=== PATIENT | male | born 1985 | race Caucasian/White ===

== ENCOUNTER → 2019-05-21 | Outpatient (REF) | payer OTHER | LOC: M SMT 13:25 | PROVIDERS: ATTEND Urology | DX: Z30.2 Encounter for sterilization (principal) ==

== ENCOUNTER → 2019-07-15 | Outpatient (REF) | payer OTHER ==
[2019-07-15 10:09] LABS: SEMEN APPEARANCE OPAQUE (OPAQUE); SEMEN VISCOSITY LIQUID (LIQUID); SEMEN VOLUME 1.8 ml (2.0-5.0); SEMEN pH 8.5 (7.0-8.0); WBC CONCENTRATION <=1 M/ml (<=1 M/ml)
== END ==
LOC: M SMT 10:03
PROVIDERS: ATTEND Urology
DX: Z98.52 Vasectomy status (principal)

== ENCOUNTER 2021-01-20 14:35 | Emergency (ER) | payer OTHER, BC ==
[~2021-01-20] VITALS: Ht 177.8 cm; Wt 103.6 kg
[2021-01-20 14:36] VITALS: BP 135/71
--- OUTSIDE RECORDS SUMMARY | 2021-01-20 14:43 | CCD ---
Author Author [facility] Organization [facility] Address Unknown Phone Unavailable Care Team Providers Care Academic Adviser Name Role Phone Mariposa Mccarthy MD Unavailable Unavailable Mariposa Mccarthy MD Unavailable Unavailable Mariposa Mccarthy MD Unavailable Unavailable Mariposa Mccarthy MD Unavailable Unavailable Mariposa Mccarthy MD Unavailable Unavailable Mariposa Mccarthy MD Unavailable Unavailable Mariposa Mccarthy MD Unavailable Unavailable Mariposa Mccarthy MD Unavailable Unavailable Mariposa Mccarthy MD Unavailable Unavailable Mariposa Mccarthy MD Unavailable Unavailable Mariposa Mccarthy MD Unavailable Unavailable Mariposa Mccarthy MD Unavailable Unavailable Mariposa Mccarthy MD Unavailable Unavailable Mariposa Mccarthy MD Unavailable Unavailable Mariposa Mccarthy MD Unavailable Unavailable Mariposa Mccarthy MD Unavailable Unavailable Mariposa Mccarthy MD Unavailable Unavailable Mariposa Mccarthy MD Unavailable Unavailable Mariposa Mccarthy MD Unavailable Unavailable Mariposa Mccarthy MD Unavailable Unavailable Mariposa Mccarthy MD Unavailable Unavailable Mariposa Mccarthy MD Unavailable Unavailable Mariposa Mccarthy MD Unavailable Unavailable Mariposa Mccarthy MD Unavailable Unavailable Mariposa Mccarthy MD Unavailable Unavailable Mariposa Mccarthy MD Unavailable Unavailable Mariposa Mccarthy MD Unavailable Unavailable Mariposa Mccarthy MD Unavailable Unavailable Mariposa Mccarthy MD Unavailable Unavailable Mariopsa Mccarthy MD Unavailable Unavailable Mariposa Mccarthy MD Unavailable Unavailable Mariposa Mccarthy MD Unavailable Unavailable Mariposa Mccarthy MD Unavailable Unavailable ShariMariposa MD Unavailable Unavailable ShariMariposa MD Unavailable Unavailable HamptonMariposa MD Unavailable Unavailable HamptonMariposa MD Unavailable Unavailable Shari, Mariposa Gottlieb MD Unavailable Unavailable ShariMariposa MD Unavailable Unavailable HamptonMariposa MD Unavailable Unavailable ShariMariposa MD Unavailable Unavailable ShariMariposa MD Unavailable Unavailable HamptonMariposa MD Unavailable Unavailable ShariMariposa MD Unavailable Unavailable ShariMariposa MD Unavailable Unavailable HamptonMariposa MD Unavailable Unavailable ShariMariposa MD Unavailable Unavailable HamptonMariposa MD Unavailable Unavailable ShariMariposa MD Unavailable Unavailable HamptonMariposa MD Unavailable Unavailable ShariMariposa MD Unavailable Unavailable ShariMariposa MD Unavailable Unavailable ShariMariposa MD Unavailable Unavailable ShariMariposa MD Unavailable Unavailable HamptonMariposa MD Unavailable Unavailable HamptonMariposa MD Unavailable Unavailable HamptonMariposa MD Unavailable Unavailable HamptonMariposa MD Unavailable Unavailable HamptonMariposa MD Unavailable Unavailable ShariMariposa MD Unavailable Unavailable ShariMariposa MD Unavailable Unavailable HamptonMariposa MD Unavailable Unavailable ShariMariposa MD Unavailable Unavailable HamptonMariposa MD Unavailable Unavailable ShariMariposa MD Unavailable Unavailable ShariMariposa MD Unavailable Unavailable HamptonMariposa MD Unavailable Unavailable ShariMariposa paiz MD Unavailable Unavailable HamptonMariposa MD Unavailable Unavailable HamptonMariposa MD Unavailable Unavailable ShariMariposa MD Unavailable Unavailable HamptonMariposa MD Unavailable Unavailable ShariMariposa MD Unavailable Unavailable ShariMariposa paiz MD Unavailable Unavailable ShariMariposa paiz MD Unavailable Unavailable HamptonMariposa paiz MD Unavailable Unavailable HamptonMariposa MD Unavailable Unavailable HamptonMariposa MD Unavailable Unavailable HamptonMariposa MD Unavailable Unavailable ShariMariposa MD Unavailable Unavailable ShariMariposa MD Unavailable Unavailable ShariMariposa MD Unavailable Unavailable ShariMariposa MD Unavailable Unavailable HamptonMariposa MD Unavailable Unavailable HamptonMariposa MD Unavailable Unavailable ShariMariposa MD Unavailable Unavailable ShariMariposa MD Unavailable Unavailable Re-disclosure Warning The records that you are about to access may contain information from federally-assisted alcohol or drug abuse programs. If such information is present, then the following federally mandated warning applies: This information has been disclosed to you from records protected by federal confidentiality rules (42 CFR part 2). The federal rules prohibit you from making any further disclosure of this information unless further disclosure is expressly permitted by the written consent of the person to whom it pertains or as otherwise permitted by 42 CFR part 2. A general authorization for the release of medical or other information is NOT sufficient for this purpose. The Federal rules restrict any use of the information to criminally investigate or prosecute any alcohol or drug abuse patient.The records that you are about to access may contain highly sensitive health information, the redisclosure of which is protected by Article 27-F of the [facility] Public Health law. If you continue you may have access to information: Regarding HIV / AIDS; Provided by facilities licensed or operated by the [facility] Office of Mental Health; or Provided by the [facility] Office for People With Developmental Disabilities. If such information is present, then the following [facility] mandated warning applies: This information has been disclosed to you from confidential records which are protected by state law. State law prohibits you from making any further disclosure of this information without the specific written consent of the person to whom it pertains, or as otherwise permitted by law. Any unauthorized further disclosure in violation of state law may result in a fine or mcc sentence or both. A general authorization for the release of medical or other information is NOT sufficient authorization for further disc losure. Family History Family Member Name Family Member Gender Family Member Status Date o f Status Description Data Source(s) Unknown Unknown Problem [facility] ([facility]) Unknown Unknown Problem [facility] ([facility]) son Unknown Unknown Encounters Encounter Providers Location Date Indications Data Source(s ) Outpatient Attender: Bull Campbell 03/29/2020 09:20:00 AM EST [facility] ([facility] ) Immunizations Vaccine Date Status Description Data Source(s) COVID-19 VACCINE Pfizer 03/24/2020 12:00:00 AM EST completed NYSIIS Vaccine Series Complete: YESThis Data wa s Submitted to [facility] Via [employer]. COVID-19 VACCINE Pfizer 03/06/2020 12:00:00 AM EST completed [facility]SIIS Vaccine Series Complete: NOThis Data was Submitted to [facility] Via [employer]. Medications No Information Insurance Providers Payer name Policy type / Coverage type Policy ID Covered alliance party ID Covered alliance party's relationship to atkinson Policy Atkinson Plan Information [employer] [employer] (HMO) [id number] Self [employer] [id number] [facility] [employer] [id number] Self [id number] [facility] Commercial [id number] Self [id number] [facility] Commercial [id number] Self [id number] Problems, Conditions, and Diagnoses No Information Surgeries/Procedures No Information Results ID Date Data Source [id number] 03/29/2020 10:12:00 AM EST [facility] ([facility]) Name Value Range Interpretation Code Description Data Alina rce(s) Supporting Document(s) Triglyceride [Mass/volume] in Serum or Plasma 60 mg/dL 30-150 [facility] ([facility]) Cholesterol in HDL [Mass/volume] in Serum or Plasma 64 mg/dL 35-60 [facility] ([facility]) Cholesterol [Mass/volume] in Serum or Plasma 230 mg/dL 131-200 [facility] ([facility]) Cholesterol in LDL [Mass/volume] in Serum or Plasma by calcu lation 154 CALC 50-159 [facility] ([facility]) ID Date Data Source [id number] 03/29/2020 10:12:00 AM EST [facility] ([facility]) Name Value Range Interpretation Code Description Data Alina rce(s) Supporting Document(s) Urea nitrogen [Mass/volume] in Serum or Plasma 16 mg/dL 7-18 [facility] ([facility]) Glucose [Mass/volume] in Serum or Plasma 104 mg/dL 74-99 [facility] ([facility]) 100-125 mg/dL PRE-DIABETES/FASTING >126 mg/dL DIABETES/FASTING Sodium [Moles/volume] in Serum or Plasma 144 meq/L 136-145 [facility] ([facility]) Potassium [Moles/volume] in Serum or Plasma 4.6 meq/L 3.5-5.1 [facility] ([facility]) Creatinine 0.8 mg/dL 0.6-1.3 [facility] ([facility]) Chloride [Moles/volume] in Serum or Plasma 104 meq/L 98-107 [facility] ([facility]) Calcium [Mass/volume] in Serum or Plasma 9.3 mg/dL 8.5-10.1 [facility] ([facility]) Carbon dioxide, total [Moles/volume] in Serum or Plasma 29 meq/L 21 -32 [facility] ([facility]) Alkaline phosphatase isoenzyme [Units/volume] in Serum or Pl asma 44 mg/dL 46-116 [facility] ([facility]) Aspartate aminotransferase [Enzymatic activity/volume] in Serum or Plasma 15 U/L 15-37 [facility] ([facility] ) Total Bilirubin 0.7 mg/dL 0.2-1.0 [facility] ([facility]) Albumin [Mass/volume] in Serum or Plasma 4.5 g/dL 3.4-5.0 [facility] ([facility]) Alanine aminotransferase [Enzymatic activity/volume] in Seru m or Plasma 37 U/L 12-78 [facility] ([facility]) Proteinase 3 Ab [Units/volume] in Serum 7.5 g/dL 6.4-8.2 [facility] ([facility]) Glomerular filtration rate/1.73 sq M pre dicted among non-blacks [Volume Rate/Area] in Serum or Plasma by Creatinine-based formula (MDRD) Laboratory test result [facility] ([facility] ) A/G Ratio 1.50 CALC 1.00-1.90 [facility] Glomerular filtration rate/1.73 sq M pre dicted among blacks [Volume Rate/Area] in Serum or Plasma by Creatinine-based formula (MDRD) Laboratory test result [facility] ([facility]) <content>CHRONIC KIDNEY DISEASE STAGING PER NKF</content>
<content></content>
<content>STAGE I & II GFR >= 60 NORMAL TO MILDLY DECREASED</content>
<content>STAGE III GFR 30-59 MODERATELY DECREASED</content>
<content>STAGE IV GFR 15-29 SEVERELY DECREASED</content>
<content>STAGE V GFR <15 VERY LITTLE GFR LEFT</content>
<content>ESRD GFR <15 ON GENERAL MILLING SUPERINTENDENT</content>
<content></content> ID Date Data Source [id number] 03/29/2020 10:12:00 AM EST [facility] ([facility]) Name Value Range Interpretation Code Description Data Alina rce(s) Supporting Document(s) Leukocytes [#/volume] in Blood by Automated count 5.3 x10*3/UL 4.1-10 .9 [facility] ([facility]) Erythrocytes [#/volume] in Blood by Automated count 5.12 x10*6/UL 4.2 0-6.30 [facility] Hemoglobin [Mass/volume] in Blood 15.0 g/dL 12.0-18.0 [facility] Hematocrit [Volume Fraction] of Blood by Automated count 42.2 % 3 7.0-51.0 [facility] MCV 82.4 fL 80.0-97.0 [facility] ([facility]) MCHC 35.6 g/dL 31.0-38.0 [facility] ([facility]) MCH 29.3 pg 26.0-32.0 [facility] ([facility]) Erythrocyte distribution width [Ratio] by Automated count 12.4 % 11.6-13.7 [facility] ([facility]) Lymph % 26.3 % 10.0-58.5 [facility] ([facility]) Platelets [#/volume] in Blood by Automated count 261 x10*3/UL 140-440 [facility] ([facility]) MPV 7.8 FL 7.8-11.0 [facility] ([facility]) Mid % 5.8 % 1.7-9.3 [facility]) Lymph # 1.4 x10*3/UL 0.6-4.1 [facility] ([facility]) Neut % 67.9 % 37.0-92.0 [facility] Mid # 0.3 x10*3/UL 0.1-0.6 [facility] ([facility]) Neut # 3.6 x10*3/UL 2.0-7.8 [facility] ([facility]) Procedure Social History No Information Vital Signs ID Date Data Source UNK Name Value Range Interpretation Code Description Data Source(s) Systolic blood pressure 118 mm[Hg] 118 mm[Hg] M [facility] ([facility]) Diastolic blood pressure 74 mm[Hg] 74 mm[Hg] [facility] ([facility]) Heart rate 70 /min 70 /[facility] Body height 70 [in_i] 70 [in_i] [facility] 5'10" Body mass index (BMI) [Ratio] 29.0 kg/m2 29.0 k g/m2 [facility] ([facility]) Body weight 202.00 [lb_av] 202.00 [lb_av] [facility] T ([facility])
[2021-01-20] MEDS ORDERED: BOOSTRIX/ADACEL VACCINE (DIPHTH/PERTUSS/ACELL/TETANUS) 0.5ML SYR IM ONE (14:55)
[2021-01-20] MEDS ORDERED: AUGMENTIN 875 MG TAB PO ONE (14:55)
[2021-01-20] MEDS ORDERED: AUGM875T28 PO (15:12)
--- OUTSIDE RECORDS SUMMARY | 2021-01-20 15:14 | CCD ---
Author Author [facility] Organization [facility] Address Unknown Phone Unavailable Care Team Providers Care Load Manager Name Role Phone Mariposa Mccarthy MD Unavailable [...] Unavailable Unavailable Mariposa Mccarthy MD Unavailable Unavailable DinubaMariposa MD Unavailable Unavailable DinubaMariposa MD Unavailable Unavailable DinubaMariposa MD Unavailable Unavailable ShariMariposa MD Unavailable Unavailable ShariMariposa MD Unavailable Unavailable ShariMariposa MD Unavailable Unavailable ShariMariposa MD Unavailable Unavailable DinubaMariposa MD Unavailable Unavailable DinubaMariposa MD Unavailable Unavailable DinubaMariposa MD Unavailable Unavailable DinubaMariposa MD Unavailable Unavailable ShariMariposa MD Unavailable Unavailable DinubaMariposa MD Unavailable Unavailable ShariMariposa MD Unavailable Unavailable DinubaMariposa MD Unavailable Unavailable DinubaMariposa MD Unavailable Unavailable ShariMariposa MD Unavailable Unavailable ShariMariposa MD Unavailable Unavailable DinubaMariposa MD Unavailable Unavailable DinubaMariposa MD Unavailable Unavailable DinubaMariposa MD Unavailable Unavailable ShariMariposa MD Unavailable Unavailable DinubaMariposa MD Unavailable Unavailable DinubaMariposa MD Unavailable Unavailable ShariMariposa MD Unavailable Unavailable DinubaMariposa MD Unavailable Unavailable DinubaMariposa MD Unavailable Unavailable ShariMariposa MD Unavailable Unavailable ShariMariposa MD Unavailable Unavailable DinubaMariposa MD Unavailable Unavailable ShariMariposa MD Unavailable Unavailable ShariMariposa MD Unavailable Unavailable ShariMariposa MD Unavailable Unavailable DinubaMariposa MD Unavailable Unavailable DinubaMariposa MD Unavailable Unavailable ShariMariposa paiz MD Unavailable Unavailable DinubaMariposa MD Unavailable Unavailable ShariMariposa MD Unavailable Unavailable ShariMariposa MD Unavailable Unavailable DinubaMariposa MD Unavailable Unavailable ShariMariposa MD Unavailable Unavailable DinubaMariposa MD Unavailable Unavailable ShariMariposa MD Unavailable Unavailable ShariMariposa MD Unavailable Unavailable DinubaMariposa MD Unavailable Unavailable DinubaMariposa MD Unavailable Unavailable ShariMariposa MD Unavailable Unavailable ShariMariposa MD Unavailable Unavailable DinubaMariposa MD Unavailable Unavailable ShariMariposa MD Unavailable Unavailable ShariMariposa MD Unavailable Unavailable ShariMariposa MD Unavailable Unavailable ShariMariposa MD Unavailable Unavailable DinubaMariposa MD Unavailable Unavailable DinubaMariposa MD Unavailable Unavailable DinubaMariposa MD Unavailable Unavailable Mariposa Mccarthy MD Unavailable Unavailable Re-disclosure Warning The records [...] is protected by Article 27-F of the [facility] Public Health law. If you continue you may have access to information: Regarding HIV / AIDS; Provided by facilities licensed or operated by the [facility] Office of Mental Health; or Provided by the [facility] Office for People With Developmental Disabilities. If such information is present, then the following [facility] mandated warning applies: This information has been [...] law may result in a fine or long-term sentence or both. A general authorization for [...] Indications Data Source(s ) Outpatient Attender: Bull Sellers 0 03/29/2020 09:20:00 AM EST [facility] ([facility] ) Immunizations Vaccine Date Status Description Data Source(s) COVID-19 VACCINE Pfizer 03/24/2020 12:00:00 AM EST completed [facility]SIIS Vaccine Series Complete: YESThis Data wa s Submitted to [facility] Via [employer]. COVID-19 VACCINE Pfizer 03/06/2020 12:00:00 AM EST completed [facility]SIIS Vaccine Series Complete: NOThis Data was Submitted to [facility] Via [employer]. Medications No Information Insurance Providers Payer name Policy type / Coverage type Policy ID Covered democrat ID Covered democrat's relationship to atkinson Policy Atkinson Plan Information [address] [employer] (HMO) [id number] Self [facility] [id number] SP [id number] [facility] [id number] SP [id number] [facility] [id number] SP [id number] BS [place] [employer] DIV [id number] SP [id number] [facility] DIV [id number] SP [id number] [facility] [place] Commercial [id number] Self [id number] [facility] [place] Commercial [id number] Self [id number] [facility] [place] Commercial [id number] Self [id number] [facility] [id number] SP [id number] Problems, Conditions, and Diagnoses No Information Surgeries/Procedures No Information Results ID Date Data Source [id number] 03/29/2020 10:12:00 AM EST [facility] ([facility]) Name Value Range Interpretation Code Description Data Alina rce(s) Supporting Document(s) Triglyceride [Mass/volume] in Serum or Plasma 60 mg/dL 30-150 [facility] ([facility]) Cholesterol in HDL [Mass/volume] in Serum or Plasma 64 mg/dL 35-60 [facility] ([facility]) Cholesterol [Mass/volume] in Serum or Plasma 230 mg/dL 131-200 [facility] ([facility]) Cholesterol in LDL [Mass/volume] in Serum or Plasma by calcu lation 154 CALC 50-159 [facility] ([facility]) ID Date Data Source [id number] 03/29/2020 10:12:00 AM EST [facility] ([facility]) Name Value Range Interpretation Code Description Data Alina rce(s) Supporting Document(s) Urea nitrogen [Mass/volume] in Serum or Plasma 16 mg/dL 7-18 [facility] ([facility]) Glucose [Mass/volume] in Serum or Plasma 104 mg/dL 74-99 [facility] ([facility]) 100-125 mg/dL PRE-DIABETES/FASTING >126 mg/dL DIABETES/FASTING Sodium [Moles/volume] in Serum or Plasma 144 meq/L 136-145 [facility] ([facility]) Potassium [Moles/volume] in Serum or Plasma 4.6 meq/L 3.5-5.1 [facility] ([facility]) Creatinine 0.8 mg/dL 0.6-1.3 [facility] ([facility]) Chloride [Moles/volume] in Serum or Plasma 104 meq/L 98-107 [facility] ([facility]) Calcium [Mass/volume] in Serum or Plasma 9.3 mg/dL 8.5-10.1 [facility] ([facility]) Carbon dioxide, total [Moles/volume] in Serum or Plasma 29 meq/L 21 -32 [facility] ([facility]) Alkaline phosphatase isoenzyme [Units/volume] in Serum or Pl asma 44 mg/dL 46-116 [facility] ([facility]) Aspartate aminotransferase [Enzymatic activity/volume] in Serum or Plasma 15 U/L 15-37 [facility] ([facility] ) Total Bilirubin 0.7 mg/dL 0.2-1.0 [facility] ([facility]) Albumin [Mass/volume] in Serum or Plasma 4.5 g/dL 3.4-5.0 [facility] ([facility]) Alanine aminotransferase [Enzymatic activity/volume] in Seru m or Plasma 37 U/L 12-78 [facility] ([facility]) Proteinase 3 Ab [Units/volume] in Serum 7.5 g/dL 6.4-8.2 [facility] ([facility]) Glomerular filtration rate/1.73 sq M pre dicted among non-blacks [Volume Rate/Area] in Serum or Plasma by Creatinine-based formula (MDRD) Laboratory test result [facility] ([facility] ) A/G Ratio 1.50 CALC 1.00-1.90 [facility] ([facility]) Glomerular filtration rate/1.73 sq M pre dicted among blacks [Volume Rate/Area] in Serum or Plasma by Creatinine-based formula (MDRD) Laboratory test result [facility] ([facility]) <content>CHRONIC KIDNEY DISEASE STAGING PER NKF</content>
<content></content>
<content>STAGE I & II GFR >= 60 NORMAL TO MILDLY DECREASED</content>
<content>STAGE III GFR 30-59 MODERATELY DECREASED</content>
<content>STAGE IV GFR 15-29 SEVERELY DECREASED</content>
<content>STAGE V GFR <15 VERY LITTLE GFR LEFT</content>
<content>ESRD GFR <15 ON FOREST FIRE PREVENTION SPECIALIST</content>
<content></content> ID Date Data Source [id number] 03/29/2020 10:12:00 AM EST [facility] Name Value Range Interpretation Code Description Data Alina rce(s) Supporting Document(s) Leukocytes [#/volume] in Blood by Automated count 5.3 x10*3/UL 4.1-10 .9 [facility] Erythrocytes [#/volume] in Blood by Automated count 5.12 x10*6/UL 4.2 0-6.30 [facility] Hemoglobin [Mass/volume] in Blood 15.0 g/dL 12.0-18.0 [facility] ([facility]) Hematocrit [Volume Fraction] of Blood by Automated count 42.2 % 3 7.0-51.0 [facility] ([facility]) MCV 82.4 fL 80.0-97.0 [facility] ([facility]) MCHC 35.6 g/dL 31.0-38.0 [facility] ([facility]) MCH 29.3 pg 26.0-32.0 [facility] ([facility]) Erythrocyte distribution width [Ratio] by Automated count 12.4 % 11.6-13.7 [facility] ([facility]) Lymph % 26.3 % 10.0-58.5 [facility]) Platelets [#/volume] in Blood by Automated count 261 x10*3/UL 140-440 [facility] ([facility]) MPV 7.8 FL 7.8-11.0 [facility] ([facility]) Mid % 5.8 % 1.7-9.3 [facility] ([facility]) Lymph # 1.4 x10*3/UL 0.6-4.1 [facility] ([facility]) Neut % 67.9 % 37.0-92.0 [facility]) Mid # 0.3 x10*3/UL 0.1-0.6 [facility] ([facility]) Neut # 3.6 x10*3/UL 2.0-7.8 [facility] ([facility]) Procedure Social History No Information Vital Signs ID Date Data Source UNK Name Value Range Interpretation Code Description Data Source(s) Systolic blood pressure 118 mm[Hg] 118 [facility]] [facility] Diastolic blood pressure 74 mm[Hg] 74 mm[Hg] [facility] ([facility]) Heart rate 70 /min 70 /min [facility] ([facility]) Body height 70 [in_i] 70 [in_i] [facility] ([facility]) 5'10" Body mass index (BMI) [Ratio] 29.0 kg/m2 29.0 k g/m2 [facility] ([facility]) Body weight 202.00 [lb_av] 202.00 [lb_av] [facility] ([facility])
== END 2021-01-20 15:25 | disposition home or self-care (01) ==
LOC: M ED 14:35
DX: S91.051A Open bite, right ankle, initial encounter (principal); S91.052A Open bite, left ankle, initial encounter; W54.0XXA Bitten by dog, initial encounter; Y92.9 Unspecified place or not applicable; Y93.9 Activity, unspecified; Y99.0 Civilian activity done for income or pay

== ENCOUNTER → 2021-03-09 | Outpatient (CLI) | payer BC, OTHER ==
[~2021-03-09] MED LIST: AUGM875T28 PO
== END ==
LOC: M RAD 09:54
PROVIDERS: ATTEND Internal Medicine
DX: N50.812 Left testicular pain (principal)